=== PATIENT | female | born 1975 | race Caucasian/White ===

== ENCOUNTER → 2017-05-22 | Outpatient (CLI) | payer BC ==
[~2017-05-22] VITALS: Ht 158.8 cm; Wt 99.8 kg
[~2017-05-22] MED LIST: ADVIL200 MG PO; ALLEGRA ALLERG180 MG PO; CELEXA20 MG PO; EXCEDRIN MIGRA1 EAC3 PO; PRILOSEC20 MG PO; SYNTHROID88 MCG PO; VITAMIN D32000 UNI1 PO; WELLBUTRIN XL300 MG PO; WOMEN'S DAILY1 EAC2 PO; WOMEN'S DAILY1 EAC4 PO
== END | disposition home or self-care (01) ==
LOC: AMB 11:48
PROC: 0DJ08ZZ Inspection of Upper Intestinal Tract, Via Natural or Artificial Opening Endoscopic (ICD-10-PCS; principal; 2017-05-22)
DX: K44.9 Diaphragmatic hernia without obstruction or gangrene (principal); K21.9 Gastro-esophageal reflux disease without esophagitis; E78.5 Hyperlipidemia, unspecified; E73.9 Lactose intolerance, unspecified; F32.9 Major depressive disorder, single episode, unspecified; E06.3 Autoimmune thyroiditis; E66.01 Morbid (severe) obesity due to excess calories; Z68.41 Body mass index [BMI] 40.0-44.9, adult; G43.909 Migraine, unspecified, not intractable, without status migrainosus; Z82.49 Family history of ischemic heart disease and other diseases of the circulatory system; Z83.3 Family history of diabetes mellitus; Z83.49 Family history of other endocrine, nutritional and metabolic diseases; Z88.1 Allergy status to other antibiotic agents; Z88.8 Allergy status to other drugs, medicaments and biological substances
CPT/HCPCS: J2250